=== PATIENT | female | born 1985 | race Asian ===

== ENCOUNTER 2016-04-03 16:20 | Emergency (ER) | payer OTHER ==
[2016-04-03] MEDS ORDERED: KETOROLAC 60 MG/2 ML VIAL IVP STA (18:16)
[2016-04-03] MEDS ORDERED: ONDANSETRON 4 MG/2 ML VIAL IVP STA (18:16)
[2016-04-03] MEDS ORDERED: DIPHENOX/ATROPINE 2.5/0.025 MG TABLET PO STA (18:16)
[2016-04-03] MEDS ORDERED: SODIUM CHLORIDE 0.9% 1,000 ML IV ONE ×2 (18:16→18:17)
[2016-04-03] MEDS ORDERED: KETOROLAC 30 MG/ML VIAL ONE (18:35)
[2016-04-03] MEDS ORDERED: DIPHENOX/ATROPINE 2.5/0.025 MG TABLET PO ONE (18:36)
[2016-04-03] MEDS ORDERED: ONDANSETRON 4 MG/2 ML VIAL ONE (18:36)
[2016-04-03] MEDS ORDERED: ONDANSETRON ODT 4 MG Prepack 2 TL PRN (20:29)
[2016-04-03] MEDS ORDERED: ONDANSETRON ODT 4 MG Prepack 2 TL ONE (20:30)
== END 2016-04-03 20:41 | disposition home or self-care (01) ==
DX: A08.4 Viral intestinal infection, unspecified (principal)
CPT/HCPCS: 80053; 81001; 81025; 83690; 96361; 96374; 96375; 99283; 99284; A9270